=== PATIENT | female | born 1995 ===

== ENCOUNTER 2019-05-13 09:24 | Inpatient (IN) | payer OTHER ==
[~2019-05-13] VITALS: Ht 165.1 cm; Wt 66.7 kg
== END 2019-05-15 12:05 | disposition home or self-care (01) | DRG 807 ==
LOC: LDR 09:24 → OB/GYN 09:24
PROVIDERS: ADMIT Obstetrics & Gynecology
PROC: 10E0XZZ Delivery of Products of Conception, External Approach (ICD-10-PCS; principal; 2019-05-13)
PROC: 10907ZC Drainage of Amniotic Fluid, Therapeutic from Products of Conception, Via Natural or Artificial Opening (ICD-10-PCS; 2019-05-13)
PROC: 4A1HXCZ Monitoring of Products of Conception, Cardiac Rate, External Approach (ICD-10-PCS; 2019-05-13)
DX: O80 Encounter for full-term uncomplicated delivery (principal); Z37.0 Single live birth; Z3A.38 38 weeks gestation of pregnancy